=== PATIENT | male | born 2000 | race Hispanic/Latino ===

== ENCOUNTER 2023-02-23 19:52 | Emergency (ER) | payer OTHER ==
[~2023-02-23] VITALS: Ht 170.2 cm; Wt 59.9 kg
[2023-02-23 19:58] VITALS: BP 136/100; PULSE 91; RESP 18; TEMP 97.6; O2SAT 100
[2023-02-23] MEDS ORDERED: WATER ONE ×2 (20:10→21:11)
[2023-02-23] MEDS ORDERED: BOOSTRIX IM ONE ×2 (20:21→20:30)
--- NOTE | 2023-02-23 20:42 | DIREP ---
PROCEDURE:XRAY HAND MIN 3 VW-LT COMPARISON:None. INDICATIONS:injury/pain FINDINGS: BONES:Normal. No fracture. JOINTS:Normal. No dislocation. SOFT TISSUES:Lacerations overlying the radial aspects of the index through small finger middle phalanges with mild adjacent soft tissue swelling. No radiopaque foreign body. OTHER:Tiny radiopaque density is incidentally noted underneath the index fingernail. CONCLUSION: Lacerations overlying the radial aspects of the left index through small finger middle phalanges. No acute osseous abnormality or radiopaque foreign body. Dictated by: Lamine Anna MD on 02/23/2023 at 08:39 PM
[2023-02-23] MEDS ORDERED: LIDOCAINE 1% VIAL ONE (20:53)
[2023-02-23 21:00] VITALS: BP 115/78; PULSE 84; RESP 18; O2SAT 97
[2023-02-23] MEDS ORDERED: TRIPLE ANTIBIOTIC OINTMENT TP ONE (21:45)
[2023-02-23 22:00] VITALS: BP 134/90; PULSE 90; RESP 18; O2SAT 96
--- NOTE | 2023-02-23 22:23 | ER.PDOC ---
General Chief Complaint: Extremities Stated Complaint: HAND INJURY Time seen by MD: 20:00 Source: patient Exam Limitations: no limitations History of Present Illness Initial Comments Patient is a 22-year-old male with no reported past medical history who comes in After sustaining an injury to his left hand. Patient states that he was working with a [employer] system when it kind of went off and cut his left hand his second third fourth and fifth digit sustaining lacerations. He states that his fifth digit on the left side is bleeding the most but the bleeding is well controlled at this time but he does feel like he lost a lot of blood. He does not know if his tetanus is up-to-date since he was in the yard that the wounds are very mild and dirty. He senses a sharp nature pain along all of those digits made worse to move palpation better with rest. Past Medical History Medical History: no pertinent history Surgical History: no surgical history Family History Significant Family History: no pertinent family hx Social History Smoking: non-smoker Alcohol Use: none Drug Use: none Reviewed Nursing Reviewed: Vital Signs, Abn. Noted, Nursing Assessment Review of Systems Constitutional: no symptoms reported EENTM: no symptoms reported Respiratory: no symptoms reported Cardiovascular: no symptoms reported Gastrointestinal: no symptoms reported Musculoskeletal: no symptoms reported Skin: other (Lax as described in HPI) Psychiatric/Neurological: no symptoms reported Physical Exam General Appearance: Alert, No Apparent Distress Hand: tenderness (Patient has 2 cm lacerations on his second third fourth and fifth digit of the left hand) Wrist: nml inspection, non-tender, nml ROM Neuro: sensation nml, motor nml Vascular: no vascular compromise Tendons: tendon function nml Forearm/Elbow/Arm: uninjured above wrist Skin: warm/dry Head/ENT: nml inspection, pharynx nml Neck/Back: nml inspection, non-tender Resp/CVS: no resp distress, lungs clear, heart sounds nml, reg. rate & rhythm Abdomen: non-tender, no organomegaly ED LACERATION WOUND REPAIR # of Wounds/Lacerations Presen: 4 Wound Location & Length (Requi: left hand Wound Length (cm): 8 Wound cleaned: betadine Distal NVT: neuro intact Anesthesia type: local Anesthesia: 1% Lidocaine Volume Anesthetic (ccs): 8 Wound's Depth, Shape: irregular Irrigated w/ Saline (ccs): 1000 Wound Explored: clean Tendon Intact: Yes Wound Debrided: moderate Wound Repaired With: dermabond, sutures Suture Size/Type: 4:0 (Vicryl) Suture Style: interupted Number of Sutures: 7 Sterile Dressing Applied?: Yes Results/Orders Results/Orders Orders - JENNIFER APARICIO MD Xr Hand Lt (02/23/23 20:09) Diph,Pertuss(Acell),Tet Vac/Pf (Boostrix (02/23/23 20:30) Diph,Pertuss(Acell),Tet Vac/Pf (Boostrix (02/23/23 20:21) Lidocaine Hcl (Lidocaine 1% Vial) (02/23/23 20:53) Water For Irrigation,Sterile (Water) (02/23/23 21:11) Neomycin/Bacitracin/Polymyxinb (Triple A (02/23/23 21:45) Vital Signs Date Time Temp Pulse Resp B/P (MAP) Pulse Ox O2 Delivery O2 Flow Rate FiO2 02/23/23 19:58 97.6 91 18 02/23/23 19:58 97.6 91 18 100 02/23/23 19:58 97.6 91 18 136/100 (112) 100 Room Air* 0 21 Administered Medications Medications (Trade) Dose Ordered Sig/Mahesh Route PRN Reason Start Time Stop Time Status Last Admin Dose Admin Diphtheria/ Tetanus/Acell Pertussis (Boostrix) 0.5 ml ONCE ONCE IM 02/23/23 20:30 02/23/23 20:31 DC 02/23/23 20:23 0.5 ML Progress Progress Patient ultimately here with 4 lacerations along his left hand we will obtain an x-ray the pinky look like he did lacerate and artery but is currently not bleeding however might need repeat repaired when repairing the room. Updated patient's tetanus 2221reassessment was able to repair all those wounds went up and interpretation patient x-ray shows nothing acute. Will discharge patient with follow-up he voiced understanding when to follow-up and when to return to the ER we will go ahead and give him prophylactic Keflex. ER DEPART Departure Time of Disposition: 22:23 Disposition: 01 HOME / SELF CARE / HOMELESS Impression: Primary Impression: Laceration of multiple sites of hand and fingers Condition: Improved Patient Instructions: Facial Laceration, Laceration Care, Adult Referrals: PCP,UNKNOWN (PCP) PRIMARY CARE PROVIDER Additional Instructions: You need to follow-up with your primary care provider in the next 7 days to have the wound rechecked. Please take all medications as prescribed if you have any new persistent or worsening symptoms or concerns seek medical attention. Duration or Time Spent with Pa: 55 Problem Qualifiers Primary Impression: Laceration of multiple sites of hand and fingers Encounter type: initial encounter Laterality: left Qualified Codes: S61.412A - Laceration without foreign body of left hand, initial encounter; S61.219A - Laceration without foreign body of unspecified finger without damage to nail, initial encounter JENNIFER APARICIO MD Feb 23, 2023 22:22
[2023-02-23 22:27] VITALS: BP 130/82; PULSE 84; RESP 18; O2SAT 98
== END 2023-02-23 22:27 | disposition home or self-care (01) ==
LOC: ER 19:52
DX: S61.412A Laceration without foreign body of left hand, initial encounter (principal); X58.XXXA Exposure to other specified factors, initial encounter; Y93.89 Activity, other specified; Y92.89 Other specified places as the place of occurrence of the external cause; Y99.8 Other external cause status
CPT/HCPCS: 99283; 90471; 12004; 90715; 73130; A4649; J2001